=== PATIENT | female | born 1975 | race Hispanic/Latino ===

== ENCOUNTER 2017-11-19 14:41 | Outpatient (CLI) | payer BC | END 2017-11-19 14:42 | disposition home or self-care (01) | LOC: BICULT 14:41 | PROVIDERS: ATTEND Family Medicine | DX: M89.8X1 Other specified disorders of bone, shoulder (principal) | CPT/HCPCS: 76999 ==

== ENCOUNTER 2019-01-20 14:11 | Outpatient (CLI) | payer BC ==
--- NOTE | 2019-01-20 16:07 | ULT ---
FOCUSED ULTRASOUND OF THE LEFT BREAST: 01/20/2019 HISTORY: Lobulated lesion noted on diagnostic mammography from an outside institution. FINDINGS: Mammography performed at an outside institution reports a lobulated mass at the 4-6 o'clock position of the left breast. Ultrasound was requested. Focused ultrasound in this region demonstrates a lobulated hypoechoic structure with internal linear areas of increased echogenicity, measuring approximately 7 x 10 x 5 mm. 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 IMPRESSION: BI-RADS 3 - probably benign findings. Recommend follow-up focused left breast ultrasound in six months as well as left breast diagnostic ma mmogram. POS: OFF
== END 2019-01-20 14:12 | disposition home or self-care (01) ==
LOC: BICMAMMO 14:11
PROVIDERS: ATTEND Obstetrics & Gynecology
DX: N63.20 Unspecified lump in the left breast, unspecified quadrant (principal)

== ENCOUNTER 2020-07-25 14:15 | Outpatient (CLI) | payer BC | END 2020-07-25 14:16 | disposition home or self-care (01) | LOC: BICMAMMO 14:15 | PROVIDERS: ATTEND Nurse Practitioner Family | DX: R92.8 Other abnormal and inconclusive findings on diagnostic imaging of breast (principal) | CPT/HCPCS: 77066; G0279 ==